=== PATIENT | male | born 1935 | race Two or more races ===

== ENCOUNTER 2021-09-15 12:00 | Inpatient (IN) | payer OTHER ==
[~2021-09-15] VITALS: Ht 170.2 cm; Wt 79.8 kg
[2021-09-15] MEDS ORDERED: SYNTHROID175 MCG PO (13:14)
[2021-09-15] MEDS ORDERED: LIPIT PO (13:15)
[2021-09-15] MEDS ORDERED: PLAVIX75 MG PO (13:15)
[2021-09-15] MEDS ORDERED: COZAAR50 MG PO (13:15)
[2021-09-15] MEDS ORDERED: NORVASC5 MG PO (13:15)
[2021-09-15] MEDS ORDERED: ADULT LOW DOSE81 M1 PO (13:16)
[2021-09-21] MEDS ORDERED: ATORVASTATIN CA20 MG PO (14:27)
[2021-09-23] MEDS ORDERED: MIRALAX17 GM PO (08:01)
[2021-09-23] MEDS ORDERED: LEVSIN0.125 MG PO (08:02)
[2021-09-23] MEDS ORDERED: PERCOCET 5-3251 EACH PO (08:03)
== END 2021-09-23 09:34 | disposition home or self-care (01) | DRG 331 ==
LOC: O/R 09-20 08:37 → SURG 09-20 12:00 → SURH 09-20 20:45
PROVIDERS: ADMIT Surgery; ATTEND Surgery
PROC: 07BB4ZZ Excision of Mesenteric Lymphatic, Percutaneous Endoscopic Approach (ICD-10-PCS; 2021-09-20)
PROC: 4A12X4Z Monitoring of Cardiac Electrical Activity, External Approach (ICD-10-PCS; 2021-09-20)
PROC: 0DTF4ZZ Resection of Right Large Intestine, Percutaneous Endoscopic Approach (ICD-10-PCS; principal; 2021-09-20 15:30)
DX: C18.2 Malignant neoplasm of ascending colon (principal); D12.1 Benign neoplasm of appendix; R59.0 Localized enlarged lymph nodes; D50.9 Iron deficiency anemia, unspecified; I25.10 Atherosclerotic heart disease of native coronary artery without angina pectoris; I11.9 Hypertensive heart disease without heart failure